=== PATIENT | male | born 1990 | race Two or more races ===

== ENCOUNTER 2020-02-10 21:49 | Emergency (ER) | payer MEDICAID ==
[~2020-02-10] VITALS: Ht 172.7 cm; Wt 99.8 kg
[2020-02-10] MEDS ORDERED: IBUPROFEN 600MG TABLET PO ONE (22:15)
[2020-02-10] MEDS ORDERED: ACETAMINOPHEN 325MG TABLET PO ONE (22:15)
[2020-02-10 23:28] LABS: CLARITY URINE CLEAR (CLEAR); COLOR URINE YELLOW (YELLOW); KETONES URINE NEGATIVE (NEGATIVE); LEUKOCYTE ESTERASE URINE NEGATIVE (NEGATIVE); NITRITE URINE NEGATIVE (NEGATIVE); OCCULT BLOOD URINE TRACE (NEGATIVE); PROTEIN URINE 1+ (NEGATIVE); UROBILINOGEN URINE 0.2 E.U./dL (0.2-1.0)
[2020-02-10 23:46] LABS: CHLORIDE 103 mEq/L (98-107)
[2020-02-10 23:47] LABS: BASOPHILS % 0.4 % (0.0-2.0); HEMOGLOBIN. 14.1 g/dL (14.0-18.0); MEAN CORPUSCULAR HEMOGLOBIN 29.1 pg (28.0-32.0); MEAN CORPUSCULAR VOLUME 84.8 fL (80.0-94.0); MONOCYTES % 7.2 % (2.0-8.0); NEUTROPHILS % 81.4 % (40.0-76.0); PLATELET 153 x1000/uL (130-400); RED BLOOD CELL COUNT 4.83 mill/uL (4.7-6.1); RED CELL DISTRIBUTION WIDTH 13.9 % (11.6-14.6)
[2020-02-11 01:41] VITALS: BP 135/78
== END 2020-02-11 01:55 | disposition home or self-care (01) ==
LOC: ER 21:49
DX: R50.9 Fever, unspecified (principal); M79.18 Myalgia, other site; Z03.818 Encounter for observation for suspected exposure to other biological agents ruled out
CPT/HCPCS: 36415; 71045; 80053; 81003; 85025; 87635; 93005; 99285